=== PATIENT | female | born 1975 | race Caucasian/White ===

== ENCOUNTER 2016-08-05 21:08 | Emergency (ER) ==
[2016-08-05 21:19] VITALS: BP 120/86; TEMP 99.6; BMI 30.4
[2016-08-05] MEDS ORDERED: PHENERGAN 25 MG/ML VIAL IM STA (21:24)
[2016-08-05] MEDS ORDERED: NORFLEX IM STA (21:24)
[2016-08-05] MEDS ORDERED: DILAUDID 2 MG/ML SYRINGE IM STA (21:24)
--- NOTE | 2016-08-05 21:27 | ED.PDOC ---
[id number] 4d josephine got a migraine jefferson--just like my other ones--i see austen wesley at [facility] Time Seen by Physician: 21:15 Mode of Arrival: Walk-In Information Source: Patient Exam Limitations: No limitations Primary Care Provider: DOMINGO CLEARY Nursing and Triage Documentation Reviewed and Agree: Yes Neurological Complaint Exam - Headache Complaint/Exam Onset: Gradual Duration: several hours Symptoms Are: Still present Timing: Constant Episodes Lasting: Hours Worst Headache Ever: No Initial Severity: Mild Current Severity: Moderate Location: Diffuse Character: Reports: Dull, Throbbing, Pressure, Typical headache, Migraine Aggravating: Reports: Bright lights Alleviating: Reports: None Associated Signs and Symptoms: Reports: Nausea, Neck pain. Denies: Dizziness, Seizure, Vomiting, Sinus pressure, Fever, Neck stiffness, Decreased LOC, Visual changes Related History: Reports: Similar episode. Denies: Recent trauma, Remote trauma Related Surgical History: Reports: None SAH Risk Factors: Reports: None Meningitis Risk Factors: Reports: None SDH Risk Factors: Reports: None Temporal Arteritis Risk Factors: Reports: Female, Normal Head CT Within Last 12 Months: Yes Fundoscopic Exam: Present: Normal Findings Papilledema Present: No Temporal Artery Tenderness: Present: None Sinus Tenderness: Present: None TMJ Tenderness: Present: None Glascow Coma Scale (see protocol): 15 Meningeal Signs Positive: No Pain on Passive Flexion-Positive Kernig's: No ROM Limited In: No Limitiations Focal Weakness: Present: None Focal Sensory Loss: Present: None Gait: Normal Nystagmus Present: No Gag Reflex Present: Yes [id number]: Normal Findings Romberg Test Positive: No Babinski Sign: Negative Right, Negative Left Heel to Toe Normal: Yes Differential Diagnoses: Migraine Review of Systems - Review Of Systems Constitutional: Reports: No symptoms Eyes: Reports: No symptoms Ears, Nose, Mouth, Throat: Reports: No symptoms Respiratory: Reports: No symptoms Cardiac: Reports: No symptoms GI: Reports: Nausea : Reports: No symptoms Musculoskeletal: Reports: Neck pain Skin: Reports: No symptoms Neurological: Reports: Headache Endocrine: Reports: No symptoms Hematologic/Lymphatic: Reports: No symptoms All Other Systems: Reviewed and Negative Past Medical History - Past Medical History Previously Healthy: Yes Endocrine: Reports: None Cardiovascular: Reports: None Respiratory: Reports: None Hematological: Reports: None Gastrointestinal: Reports: None Genitourinary: Reports: None Neuro/Psych: Reports: Migraine, Anxiety Musculoskeletal: Reports: None Cancer: Reports: None Last Menstrual Period: 2011 hyst - Surgical History General Surgical History: Reports: Hysterectomy - Family History Family History: Reports: Unknown - Social History Smoking Status: Current every day smoker, Heavy tobacco smoker Hx Substance Use: No Alcohol Screening: Occasionally Lives: With family - Immunizations Tetanus Shot up to Date: Yes Physical Exam - Physical Exam Appearance: Well-appearing, No pain distress, Well-nourished Pain Distress: Moderate Eyes: JEFFREY ENT: Ears normal, Nose normal, Oropharynx normal Neck: Supple Respiratory: Airway patent, Breath sounds clear, Breath sounds equal, Respirations nonlabored Cardiovascular: RRR GI/: Soft, Nontender, No masses, Bowel sounds normal, No Organomegaly Musculoskeletal: Limited ROM Skin: Warm, Dry, Normal color Neurological: Sensation intact, Motor intact, Reflexes intact, Cranial nerves intact, Alert, Oriented Psychiatric: Affect appropriate Re-Evaluation - Re-Evaluation Time of Re-Evaluation: 22:05 Status: Improved Vital Signs Stable: Yes Pain Level: 1 Appearance: NAD Lungs: Clear Skin: Warm and Dry Neuro: Alert and Oriented X3 CV: RRR Critical Care Note - Critical Care Note Total Time (mins): 0 Course - Course Orders, Labs, Meds: Orders Category Date Time Status Hydromorphone HCl/Pf [Dilaudid 2 mg/ml Syringe] MEDS 08/05/16 21:24 Discontinued 2 mg IM ONCE STA Orphenadrine Citrate [Norflex] MEDS 08/05/16 21:24 Discontinued 60 mg IM ONCE STA Promethazine HCl [Phenergan 25 mg/ml Vial] MEDS 08/05/16 21:24 Discontinued 25 mg IM ONCE STA Medications Discontinued Medications Generic Name Dose Route Start Last Admin Trade Name Freq PRN Reason Stop Dose Admin Hydromorphone HCl 2 mg 08/05/16 21:24 08/05/16 21:39 Dilaudid 2 Mg/Ml Syringe IM 08/05/16 21:25 2 mg ONCE STA Administration Orphenadrine Citrate 60 mg 08/05/16 21:24 08/05/16 21:38 Norflex IM 08/05/16 21:25 60 mg ONCE STA Administration Promethazine HCl 25 mg 08/05/16 21:24 08/05/16 21:40 Phenergan 25 Mg/Ml Vial IM 08/05/16 21:25 25 mg ONCE STA Administration Vital Signs: Temp Pulse Resp BP Pulse Ox 08/05/16 21:11 99.6 F 92 H 20 120/86 97 Departure - Departure Time of Disposition: 21:28 Disposition: HOME SELF-CARE Discharge Problem: Migraine Qualifiers: Migraine type: without aura Status migrainosus presence: without status migrainosus Intractability: not intractable Qualifier Code: (G43.009) Migraine without aura, not intractable, without status migrainosus Instructions: Migraine Headache (ED) Condition: Good Pt referred to PMD for follow-up: Yes Additional Instructions: f/u with neurology Allergies/Adverse Reactions: Allergies sulfacetamide sodium [From Zencia] Adverse Reaction (Verified 08/05/16 21:21) sulfur [From Zencia] Adverse Reaction (Verified 08/05/16 21:21) Home Medications: Ambulatory Orders Alprazolam [Xanax] 1 mg PO BID 04/23/14 Naproxen [Naprosyn] 500 mg PO DAILY PRN 04/23/14 Lamotrigine [Lamictal Xr] 50 mg PO BEDTIME 02/17/16 Ranitidine HCl [Zantac] 150 mg PO BIDAC 02/17/16 Venlafaxine HCl [Effexor Xr] 150 mg PO DAILY 02/17/16 Disposition Discussed With: Patient, Family
== END 2016-08-05 22:00 | disposition home or self-care (01) ==
LOC: ED 21:08
DX: G43.009 Migraine without aura, not intractable, without status migrainosus (principal); F17.210 Nicotine dependence, cigarettes, uncomplicated
CPT/HCPCS: 96372; 99283

== ENCOUNTER 2016-09-14 14:47 | Emergency (ER) ==
[2016-09-14 14:51] VITALS: BP 112/79; TEMP 97.5; BMI 29.5
--- NOTE | 2016-09-14 15:54 | ED.PDOC ---
General ED Provider: Dr. ALLIE FARRELL JR Chief Complaint: Respiratory Complaint Stated Complaint: complins of cough, had productive yellow phlegm 2 days ago. alston when breathes and throat is raw[ End ]1 week 97.5 89 18 97% 112/79 4/10 I feel terrible, recent right sided pneumonia Time Seen by Physician: 15:52 Mode of Arrival: Walk-In Information Source: Patient Exam Limitations: No limitations Primary Care Provider: DOMINGO CLEARY Nursing and Triage Documentation Reviewed and Agree: No Review of Systems - Review Of Systems Constitutional: Reports: Chills, Malaise (I FEEL TERRIBLE), Weakness Eyes: Reports: No symptoms Ears, Nose, Mouth, Throat: Reports: Throat pain Respiratory: Reports: Cough (PRODUCTIVE YELLOW SPUTUM- NOW RESOLVED) Cardiac: Reports: No symptoms GI: Reports: No symptoms : Reports: No symptoms Musculoskeletal: Reports: No symptoms Skin: Reports: No symptoms Neurological: Reports: No symptoms Endocrine: Reports: No symptoms Hematologic/Lymphatic: Reports: No symptoms All Other Systems: Other Past Medical History - Past Medical History Previously Healthy: Yes Endocrine: Reports: None Cardiovascular: Reports: None Respiratory: Reports: None Hematological: Reports: None Gastrointestinal: Reports: None Genitourinary: Reports: None Neuro/Psych: Reports: Migraine, Seizure, Anxiety Musculoskeletal: Reports: None Cancer: Reports: None Last Menstrual Period: none - Surgical History General Surgical History: Reports: Hysterectomy (HYSTERECTOMY 2011), Orthopedic (KNEE SURGERY), Other (SALIVA STONES, SINUS SURGERY, BLADDER SURGERY) - Family History Family History: Reports: Unknown - Social History Smoking Status: Current every day smoker, Heavy tobacco smoker Hx Substance Use: No Alcohol Screening: Occasionally Physical Exam - Physical Exam Appearance: Well-appearing, Thin Pain Distress: Mild Eyes: JEFFREY, EOMI, Conjunctiva clear ENT: Ears normal, Nose normal, Oropharynx normal Neck: Supple Respiratory: Airway patent, Breath sounds clear, Breath sounds equal, Respirations nonlabored, Rhonchi (RIGHT SIDE) Cardiovascular: RRR, Pulses normal, No rub, No murmur GI/: Soft, Nontender, No masses, Bowel sounds normal, No Organomegaly Musculoskeletal: Normal strength, ROM intact, No edema, No calf tenderness Skin: Warm, Dry, Normal color Neurological: Sensation intact, Motor intact, Reflexes intact, Cranial nerves intact, Alert, Oriented Psychiatric: Affect appropriate, Mood appropriate Critical Care Note - Critical Care Note Total Time (mins): 0 Course - Course Orders, Labs, Meds: Lab Review 09/14/16 16:00 Influenza A (Rapid) Negative Influenza B (Rapid) Negative Orders Category Date Time Status MOLECULAR GROUP A STREP Stat LAB 09/14/16 16:00 Results RAPID FLU A/B Stat LAB 09/14/16 16:00 Completed STREP SCREEN Stat LAB 09/14/16 16:00 Results CHEST, 2 VIEWS PA & LAT Stat RADS 09/14/16 15:53 Completed Vital Signs: Temp Pulse Resp BP Pulse Ox 09/14/16 14:47 97.5 F L 89 18 112/79 97 Departure - Departure Time of Disposition: 17:02 Disposition: HOME SELF-CARE Discharge Problem: Bronchitis Instructions: Acute Bronchitis (ED), How to Stop Smoking (ED) Condition: Fair Pt referred to PMD for follow-up: Yes Additional Instructions: RECOMMEND STOP SMOKING COUGH MEDICATIONS SUCH ROBITUSSIN DM OR ROBITUSSIN AC OR SIMILAR NO FLU NO STREP RECHECK pmd ONE WEEK SOONER IF WORSE OR IF FEVER OVER 101.0 Prescriptions: Guaifenesin/Codeine Phosphate [Robitussin AC Syrup] 10 ml PO Q6H PRN #240 ml PRN Reason: Cough Ibuprofen [Motrin] 600 mg PO QID PRN #30 tablet PRN Reason: PAIN Allergies/Adverse Reactions: Allergies sulfacetamide sodium [From Zencia] Adverse Reaction (Verified 09/14/16 14:51) sulfur [From Zencia] Adverse Reaction (Verified 09/14/16 14:51) Home Medications: Ambulatory Orders Alprazolam [Xanax] 1 mg PO BID 04/23/14 Ranitidine HCl [Zantac] 150 mg PO BIDAC 02/17/16 Guaifenesin/Codeine Phosphate [Robitussin AC Syrup] 10 ml PO Q6H PRN #240 ml 07/02 Ibuprofen [Motrin] 600 mg PO QID PRN #30 tablet 09/14/16
[2016-09-14 16:20] LABS: FLU INTERNAL QC INTERNAL QC VALID; RAPID FLU A NEGATIVE (NEGATIVE); RAPID FLU B NEGATIVE (NEGATIVE)
--- NOTE | 2016-09-14 16:44 | DI ---
EXAM: Two views of the chest. History: Cough. Comparison: Chest radiograph 02/17/2016 Findings: Heart size is normal. No focal consolidation. No appreciable pleural fluid and no pneum othorax. No acute osseous abnormalities. Impression: No acute cardiopulmonary process.
== END 2016-09-14 17:11 | disposition home or self-care (01) ==
LOC: ED 14:47
DX: J20.9 Acute bronchitis, unspecified (principal); F17.210 Nicotine dependence, cigarettes, uncomplicated
CPT/HCPCS: 87651; 87804; 87880; 99283

== ENCOUNTER 2017-02-07 09:39 | Outpatient (CLI) ==
[2017-02-07 10:15] LABS: BASOPHILS % (AUTO) 0.6 % (0.0-3.0); EOSINOPHILS # (AUTO) 0.1 K/ul (0.0-0.7); EOSINOPHILS % (AUTO) 1.6 % (0.0-7.0); HEMATOCRIT 40.1 % (37.0-47.0); IMMATURE GRANULOCYTE % (AUTO) 0.1 % (0.0-5.0); LYMPHOCYTES # (AUTO) 2.1 K/uL (0.60-3.4); LYMPHOCYTES % (AUTO) 30.3 (10.0-50.0); MEAN CORPUSCULAR HGB CONC 34.9 (31.8-35.4); MEAN CORPUSCULAR VOLUME 91.6 fl (81.0-99.0); MONOCYTES # (AUTO) 0.5 K/uL (0.4-2.0); MONOCYTES % (AUTO) 6.9 (0-10); NEUTROPHILS # (AUTO) 4.1 K/ul (2.0-6.9); NEUTROPHILS % (AUTO) 60.5; PLATELET COUNT 195 10^3/uL (140-440); RED BLOOD COUNT 4.38 10^6/ul (4.20-5.40); WHITE BLOOD COUNT 6.83 K/ul (4.6-10.2)
[2017-02-07 11:09] LABS: ALBUMIN 3.7 g/dL (3.4-5.0); ALBUMIN/GLOBULIN RATIO 1.37; BILIRUBIN,TOTAL 0.39 mg/dL (0.00-1.20); BUN/CREATININE RATIO 14.28; CALCIUM 9.2 mg/dL (8.2-10.2); CHOL/HDL RATIO 5.5 (4.5-5.5); CREATININE 0.7 mg/dL (0.60-1.30); TOTAL PROTEIN 6.4 g/dL (6.4-8.2)
== END 2017-02-07 09:40 | disposition home or self-care (01) ==
LOC: LAB 09:39
PROVIDERS: ATTEND Physician Assistant
DX: F41.9 Anxiety disorder, unspecified (principal); M79.7 Fibromyalgia
CPT/HCPCS: 36415; 80053; 80061; 84443; 85025

== ENCOUNTER 2017-02-08 13:12 | Outpatient (CLI) | END 2017-02-08 13:13 | disposition home or self-care (01) | LOC: LAB 13:12 | PROVIDERS: ATTEND Physician Assistant | DX: M25.50 Pain in unspecified joint (principal) | CPT/HCPCS: 36415; 86617; 86757 ==

== ENCOUNTER 2017-07-13 23:02 | Emergency (ER) ==
[2017-07-13 23:21] VITALS: BP 124/82; TEMP 99.1; BMI 28.1
[2017-07-13] MEDS ORDERED: SODIUM CHLORIDE 1,000 ML IV STA (23:24)
[2017-07-13] MEDS ORDERED: MORPHINE 2 MG/ML SYRINGE IVP STA (23:25)
[2017-07-13] MEDS ORDERED: ZOFRAN 4 MG/2 ML IVP STA (23:25)
--- NOTE | 2017-07-14 01:09 | CT ---
Exam: CT of the abdomen and pelvis with contrast History: Abdominal pain Technique: [address] of the abdomen and pelvis following intravenous contrast FINDINGS: The lung bases are clear. Sub centimeter liver cysts. Liver appears normal otherwise. The adrenals, pancreas and spleen are unremarkable. The stomach and hiatus are unremarkable.The gallblad anju appears normal. Kidneys and proximal collecting system are unremarkable. The appendix is normal. Bowel loops demonstrate normal caliber. No inflamatory change seen in the mesentery or retroperitoneu m. Vascular structures appear normal. Small (2.2 cm) fatty ventral abdominal hernia without complicat ion. Prior hysterectomy. Normal urinary bladder appears normal pelvic bowel loops. No pelvic fat inflamm ation. No acute findings of the skeleton. Impression: 1. No inflammatory process, bowel or urinary obstruction is seen. 2. Small fatty ventral midline hernia without complication.
[2017-07-14] MEDS ORDERED: MORPHINE 2 MG/ML SYRINGE IVP STA (01:11)
--- NOTE | 2017-07-14 01:14 | CT ---
EXAM: CT pulmonary angiogram. HISTORY: Dyspnea. Evaluate for pulmonary embolism. PROCEDURE: After the intravenous injection of contrast a CT pulmonary angiogram was performed with c ontiguous axial CT images and multiplanar and 3-D reformats. FINDINGS: There is normal enhancement of the pulmonary arteries with no evidence of pulmonary embolis m. The heart is within normal limits in size. The thoracic aorta is within normal limits in diamete r. There is minimal bibasilar dependent atelectasis. There are bilateral ground-glass opacities. The bones and soft tissues are unremarkable. Impression: No evidence of pulmonary embolism. Bilateral ground-glass opacities which is a nonspecific finding. The differential diagnosis includes infection and edema. Minimal bibasilar dependent atelectasis.
--- NOTE | 2017-07-14 02:04 | ED.PDOC ---
General ED Provider: Dr. AVERY TONEY-ER Chief Complaint: Abdominal Pain Stated Complaint: im hurting Time Seen by Physician: 23:10 Mode of Arrival: Walk-In Information Source: Patient Exam Limitations: No limitations Primary Care Provider: DOMINGO CLEARY Nursing and Triage Documentation Reviewed and Agree: Yes Reviewed sepsis parameters & appropriate labs ordered?: Yes System Inflammatory Response Syndrome: Not Applicable Sepsis Protocol: For patient's 13 years and over: Temp is 96.8 and below OR 101 and greater Pulse >90 BPM Resp >20/minute Acutely Altered Mental Status Are patient's symptoms suggestive of a new infection, such as: -Pneumonia -Skin, Soft Tissue -Endocarditis -UTI -Bone, Joint Infection -Implantable Device -Acute Abdominal Infection -Wound Infection -Meningitis -Blood Stream Catheter Infection -Unknown GI Complaint Exam - Abdominal Pain Complaint/Exam Onset: Gradual Duration: several days Symptoms Are: Still present Timing: Intermittent Initial Severity: Mild Current Severity: Mild Location of Pain: Epigastric Character: Reports: Dull, Aching Aggravating: Reports: Movement Alleviating: Reports: Spontaneous resolution Associated Signs and Symptoms: Reports: Nausea. Denies: Diaphoresis, Fever, Cough, Chest pain, Dizziness, Back pain, Constipation, Blood in stool, Dysuria, Urinary frequency, Decreased urine output, Decreased appetite, Vaginal bleeding , Vaginal discharge Differential Diagnoses: Bowel Obstruction, Constipation, Pancreatitis Quality Indicator For Non-Traumatic Chest Pain/Syncope: EKG Performed Review of Systems - Review Of Systems Constitutional: Reports: No symptoms Eyes: Reports: No symptoms Ears, Nose, Mouth, Throat: Reports: No symptoms Respiratory: Reports: No symptoms Cardiac: Reports: No symptoms GI: Reports: Abdominal pain, Nausea : Reports: No symptoms Musculoskeletal: Reports: No symptoms Skin: Reports: No symptoms Neurological: Reports: No symptoms Endocrine: Reports: No symptoms Hematologic/Lymphatic: Reports: No symptoms All Other Systems: Reviewed and Negative Past Medical History - Past Medical History Previously Healthy: Yes Endocrine: Reports: None Cardiovascular: Reports: None Respiratory: Reports: None Hematological: Reports: None Gastrointestinal: Reports: None Genitourinary: Reports: None Neuro/Psych: Reports: Migraine, Seizure, Anxiety Musculoskeletal: Reports: None Cancer: Reports: None Last Menstrual Period: 2011 Other Pertinent Past Medical History: , BLADDER SURG.[ End ]BEING TESTED FOR MS sz anx migr - Surgical History General Surgical History: Reports: Hysterectomy (HYSTERECTOMY 2011), Orthopedic (KNEE SURGERY), Other (SALIVA STONES, SINUS SURGERY, BLADDER SURGERY) - Family History Family History: Reports: Unknown - Social History Smoking Status: Current every day smoker, Heavy tobacco smoker Hx Substance Use: No Alcohol Screening: Occasionally - Immunizations Tetanus Shot up to Date: Yes Physical Exam - Physical Exam Appearance: Well-appearing, No pain distress, Well-nourished Eyes: JEFFREY, EOMI, Conjunctiva clear ENT: Ears normal, Nose normal, Oropharynx normal Neck: Supple Respiratory: Airway patent, Breath sounds clear, Breath sounds equal, Respirations nonlabored Cardiovascular: RRR, Pulses normal, No rub, No murmur GI/: Soft, No masses, Bowel sounds normal, No Organomegaly, Tender Musculoskeletal: Normal strength Skin: Warm Neurological: Sensation intact, Motor intact, Reflexes intact, Cranial nerves intact, Alert, Oriented Psychiatric: Affect appropriate, Mood appropriate, Anxious Interpretation - Radiology Interpretation Radiology Interpretation By: Radiologist Radiology Results: Positive Exam Interpreted: CT Scan - EKG Interpretation Time of EKG #1: 02:03 Rate: Normal Rhythm: Sinus Ectopy: None [place]: NL ST Segment: Normal Interpretation: nsr Re-Evaluation - Re-Evaluation Time of Re-Evaluation: 02:04 Status: Improved Vital Signs Stable: Yes Pain Level: 1 Appearance: NAD Lungs: Clear Skin: Warm and Dry Neuro: Alert and Oriented X3 CV: RRR Critical Care Note - Critical Care Note Total Time (mins): 0 Course - Course Hematology/Chemistry: 07/13/17 23:33 07/13/17 23:33 Orders, Labs, Meds: Lab Review 07/13/17 07/13/17 07/14/17 23:33 23:33 00:40 WBC 8.43 RBC 4.16 L Hgb 13.5 Hct 38.0 MCV 91.3 MCH 32.5 H MCHC 35.5 H RDW Coeff of Vicki 12.5 Plt Count 251 Immature Gran % (Auto) 0.1 Neut % (Auto) 46.4 Lymph % (Auto) 46.0 Josephine % (Auto) 5.6 Eos % (Auto) 1.4 Baso % (Auto) 0.5 Immature Gran # (Auto) 0.0 Neut # (Auto) 3.9 Lymph # (Auto) 3.9 H Josephine # (Auto) 0.5 Eos # (Auto) 0.1 Baso # (Auto) 0.0 ESR 5 Sodium 141 Potassium 3.7 Chloride 109 H Carbon Dioxide 21 Anion Gap 14.7 BUN 8 Creatinine 0.70 Estimated GFR (MDRD) 93.00 BUN/Creatinine Ratio 11.42 Glucose 95 Calcium 9.0 Total Bilirubin < 0.3 AST 12 L ALT 10 L Alkaline Phosphatase 93 Total Protein 7.1 Albumin 3.9 Globulin 3.2 Albumin/Globulin Ratio 1.22 Amylase 111 Lipase 65 Urine Color Urine Clarity Urine pH Ur Specific Ambia Urine Protein Urine Glucose (UA) Urine Ketones Urine Blood Urine Nitrite Urine Bilirubin Urine Urobilinogen Ur Leukocyte Esterase Urine Microscopic RBC Urine Microscopic WBC Ur Squamous Epith Cells Urine Mucus Urine Opiates Screen Ur Oxycodone Screen Urine Methadone Screen Ur Propoxyphene Screen Ur Barbiturates Screen U Tricyclic Antidepress Ur Phencyclidine Scrn Ur Amphetamine Screen U Methamphetamines Scrn U Benzodiazepines Scrn Urine Cocaine Screen U Cannabinoids Screen Influ A Molecular Assay Negative by naat Influ B Molecular Assay Negative by naat 07/14/17 07/14/17 01:15 01:15 WBC RBC Hgb Hct MCV MCH MCHC RDW Coeff of Vicki Plt Count Immature Gran % (Auto) Neut % (Auto) Lymph % (Auto) Josephine % (Auto) Eos % (Auto) Baso % (Auto) Immature Gran # (Auto) Neut # (Auto) Lymph # (Auto) Josephine # (Auto) Eos # (Auto) Baso # (Auto) ESR Sodium Potassium Chloride Carbon Dioxide Anion Gap BUN Creatinine Estimated GFR (MDRD) BUN/Creatinine Ratio Glucose Calcium Total Bilirubin AST ALT Alkaline Phosphatase Total Protein Albumin Globulin Albumin/Globulin Ratio Amylase Lipase Urine Color Yellow Urine Clarity Clear Urine pH 5.5 Ur Specific Ambia <=1.005 Urine Protein Negative Urine Glucose (UA) Negative Urine Ketones Negative Urine Blood Trace-intact Urine Nitrite Negative Urine Bilirubin Negative Urine Urobilinogen 0.2 Ur Leukocyte Esterase Negative Urine Microscopic RBC 2-5 Urine Microscopic WBC 2-5 Ur Squamous Epith Cells 0-2 Urine Mucus 1+ Urine Opiates Screen Positive Ur Oxycodone Screen Negative Urine Methadone Screen Negative Ur Propoxyphene Screen Negative Ur Barbiturates Screen Negative U Tricyclic Antidepress Negative Ur Phencyclidine Scrn Negative Ur Amphetamine Screen Negative U Methamphetamines Scrn Negative U Benzodiazepines Scrn Negative Urine Cocaine Screen Negative U Cannabinoids Screen Negative Influ A Molecular Assay Influ B Molecular Assay Orders Category Date Time Status EKG-(ED ONLY) Stat CARDIO 07/14/17 00:30 Completed NPO REMINDER: IMAGING ONCE CARE 07/13/17 23:24 Completed ED IV/MEDIPORT/POWERPORT .ONCE EMERGENCY 07/13/17 23:24 Active AMYLASE Stat LAB 07/13/17 23:33 Completed CBC W/ AUTO DIFF Stat LAB 07/13/17 23:33 Completed COMPREHENSIVE METABOLIC PANEL Stat LAB 07/13/17 23:33 Completed ESR Stat LAB 07/13/17 23:33 Completed FLU A/B MOLECULAR Stat LAB 07/14/17 00:40 Completed LIPASE Stat LAB 07/13/17 23:33 Completed MOLECULAR GROUP A STREP Stat LAB 07/14/17 00:40 Completed URINALYSIS C & S IF INDICATED Stat LAB 07/14/17 01:15 Completed URINE DRUG SCREEN (RAPID FOR ED) [DRUG SCREEN, URINE, LAB 07/14/17 01:15 Completed RAPID] Stat 0.9 % Sodium Chloride [Saline Flush] MEDS 07/13/17 23:24 Ordered 1 syr IVF PRN PRN Morphine Sulfate [Morphine 2 mg/ml Syringe] MEDS 07/13/17 23:25 Discontinued 2 mg IVP ONCE STA Morphine Sulfate [Morphine 2 mg/ml Syringe] MEDS 07/14/17 01:11 Discontinued 2 mg IVP ONCE STA Ondansetron HCl/Pf [Zofran 4 mg/2 ml] MEDS 07/13/17 23:25 Discontinued 4 mg IVP ONCE STA Sodium Chloride 0.9% [Sodium Chloride] 1,000 ml MEDS 07/13/17 23:[address] ABDOMEN/PELVIS W CONTRAST Stat RADS 07/13/17 23:[address] CHEST PE PROTOCOL Stat RADS 07/13/17 23:24 Completed Medications Generic Name Dose Route Start Last Admin Trade Name Freq PRN Reason Stop Dose Admin Sodium Chloride 1,000 mls @ 250 mls/hr 07/13/17 23:24 07/14/17 00:19 Sodium Chloride IV 07/14/17 03:23 250 mls/hr BOLUS STA Administration Sodium Chloride 1 syr 07/13/17 23:24 Saline Flush IVF PRN PRN To flush IV Discontinued Medications Generic Name Dose Route Start Last Admin Trade Name Freq PRN Reason Stop Dose Admin Morphine Sulfate 2 mg 07/13/17 23:25 07/14/17 00:18 Morphine 2 Mg/Ml Syringe IVP 07/13/17 23:26 2 mg ONCE STA Administration Morphine Sulfate 2 mg 07/14/17 01:11 07/14/17 01:17 Morphine 2 Mg/Ml Syringe IVP 07/14/17 01:12 2 mg ONCE STA Administration Ondansetron HCl 4 mg 07/13/17 23:25 07/14/17 00:19 Zofran 4 Mg/2 Ml IVP 07/13/17 23:26 4 mg ONCE STA Administration Vital Signs: Temp Pulse Resp BP Pulse Ox 07/13/17 23:04 99.1 F 99 H 20 124/82 94 L Departure - Departure Time of Disposition: 02:04 Disposition: HOME SELF-CARE Discharge Problem: Ventral hernia without obstruction or gangrene Instructions: Ventral Hernia (ED) Condition: Good Pt referred to PMD for follow-up: Yes IPMP verified?: No Additional Instructions: f/u with pcp for surgery referral--augmentin 875mg bid x 7 days Allergies/Adverse Reactions: Allergies sulfacetamide sodium [From Zencia] Adverse Reaction (Verified 07/13/17 23:15) sulfur [From Zencia] Adverse Reaction (Verified 07/13/17 23:15) Home Medications: Ambulatory Orders Alprazolam [Xanax] 1 mg PO BID 04/23/14 Albuterol Sulfate [Proair Hfa] 2 puff IH Q6H PRN #1 puff 03/22/17 Duloxetine HCl [Cymbalta] 20 mg PO DAILY 03/22/17 Rizatriptan Benzoate [Maxalt] 5 mg PO PRN PRN 03/22/17 Sumatriptan Succinate [Onzetra Xsail] 11 mg NS PRN PRN 03/22/17 Memantine HCl [Namenda] 10 mg PO BID 07/13/17 Disposition Discussed With: Patient, Family
== END 2017-07-14 02:14 | disposition home or self-care (01) ==
LOC: ED 23:02
DX: K43.9 Ventral hernia without obstruction or gangrene (principal); F17.210 Nicotine dependence, cigarettes, uncomplicated
CPT/HCPCS: 36415; 80053; 80306; 81001; 82150; 83690; 85025; 85651; 87502; 87651; 93005; 93010; 96361; 96374; 96375; 96376; 99283

== ENCOUNTER 2017-07-15 09:53 | Outpatient (CLI) ==
--- NOTE | 2017-07-15 11:06 | US ---
EXAM: Ultrasound abdomen limited. HISTORY: Left upper quadrant pain. Attention spleen. COMPARISON: CT 1 day prior. TECHNIQUE: Abdominal, real time with image documentation: limited (eg, single organ, quadrant, foll ow-up) FINDINGS: The spleen measures approximately 10.1 x 4.3 x 7.2 cm and appears homogeneous. No left up per quadrant fluid collections are seen. IMPRESSION: No sonographic abnormality of the spleen.
== END 2017-07-15 09:54 | disposition home or self-care (01) ==
LOC: RAD 09:53
PROVIDERS: ATTEND Physician Assistant
DX: R05 Cough (principal); R07.89 Other chest pain; R10.12 Left upper quadrant pain
CPT/HCPCS: 36415; 85025

== ENCOUNTER 2017-08-15 22:58 | Emergency (ER) ==
[2017-08-15 22:58] VITALS: BMI 27.8
[2017-08-15 23:10] VITALS: BP 122/85; TEMP 97.9
--- NOTE | 2017-08-15 23:23 | ED.PDOC ---
General ED Provider: Dr. AVERY TONEY-ER Chief Complaint: Extremity Swelling/Pain Stated Complaint: my legs are swollen --mamadou right leg Time Seen by Physician: 23:20 Mode of Arrival: Walk-In Information Source: Patient Exam Limitations: No limitations Primary Care Provider: DOMINGO CLEARY Nursing and Triage Documentation Reviewed and Agree: Yes Reviewed sepsis parameters & appropriate labs ordered?: Yes System Inflammatory Response Syndrome: Not Applicable Sepsis Protocol: For patient's 13 years and over: Temp is 96.8 and below OR 101 and greater Pulse >90 BPM Resp >20/minute Acutely Altered Mental Status Are patient's symptoms suggestive of a new infection, such as: -Pneumonia -Skin, Soft Tissue -Endocarditis -UTI -Bone, Joint Infection -Implantable Device -Acute Abdominal Infection -Wound Infection -Meningitis -Blood Stream Catheter Infection -Unknown Musculoskeletal Complaint Exam - Lower Extremity Complaint/Exam Location of Pain: Reports: Right, Leg Mechanism of Injury: Reports: No known trauma Onset/Duration: several hours Symptoms Are: Still present Onset of Pain: Reports: Immediate Initial Severity: Mild Current Severity: Mild Location: Reports: Discrete Character: Reports: Dull, Aching Aggravating: Reports: Movement, Weight bearing Able to Bear Weight: No Associated Signs and Symptoms: Reports: Swelling Septic Arthritis Risk Factors: Reports: None Related Surgical History: Reports: None Lower Extremity Findings: Present: Swelling, Tenderness, Limited range of motion Compartment Syndrome Risk Factors: Present: Pain Kari's Sign Present: Yes Differential Diagnoses: DVT, Phlebitis Review of Systems - Review Of Systems Constitutional: Reports: No symptoms Eyes: Reports: No symptoms Ears, Nose, Mouth, Throat: Reports: No symptoms Respiratory: Reports: No symptoms Cardiac: Reports: No symptoms GI: Reports: No symptoms, Other : Reports: No symptoms Musculoskeletal: Reports: No symptoms Skin: Reports: No symptoms Neurological: Reports: No symptoms Endocrine: Reports: No symptoms Hematologic/Lymphatic: Reports: No symptoms All Other Systems: Reviewed and Negative Past Medical History - Past Medical History Previously Healthy: Yes Endocrine: Reports: None Cardiovascular: Reports: None Respiratory: Reports: None Hematological: Reports: None Gastrointestinal: Reports: None Genitourinary: Reports: None Neuro/Psych: Reports: Migraine, Seizure, Anxiety Musculoskeletal: Reports: None Cancer: Reports: None Last Menstrual Period: PT HAS HAD A HYSTERECTOMY Other Pertinent Past Medical History: , BLADDER SURG.[ End ]BEING TESTED FOR MS sz anx migr - Surgical History General Surgical History: Reports: Hysterectomy (HYSTERECTOMY 2011), Orthopedic (KNEE SURGERY), Other (SALIVA STONES, SINUS SURGERY, BLADDER SURGERY) - Family History Family History: Reports: Unknown - Social History Smoking Status: Current every day smoker, Heavy tobacco smoker Hx Substance Use: No Alcohol Screening: Occasionally - Immunizations Tetanus Shot up to Date: Yes Physical Exam - Physical Exam Appearance: Well-appearing, No pain distress, Well-nourished Eyes: JEFFREY, EOMI, Conjunctiva clear ENT: Ears normal, Nose normal, Oropharynx normal Neck: Supple Respiratory: Airway patent, Breath sounds clear, Breath sounds equal, Respirations nonlabored Cardiovascular: RRR, Pulses normal, No rub, No murmur GI/: Soft, Nontender, No masses, Bowel sounds normal, No Organomegaly Musculoskeletal: Limited ROM Skin: Warm, Dry, Normal color Neurological: Sensation intact Psychiatric: Affect appropriate, Mood appropriate Critical Care Note - Critical Care Note Total Time (mins): 0 Course - Course Vital Signs: Temp Pulse Resp BP Pulse Ox 08/15/17 22:59 97.9 F 89 18 122/85 97 Departure - Departure Time of Disposition: 23:21 Disposition: AMA Discharge Problem: Edema of lower extremity Instructions: Leg Edema (ED) Condition: Good Pt referred to PMD for follow-up: Yes IPMP verified?: No Additional Instructions: return prn Allergies/Adverse Reactions: Allergies latex Adverse Reaction (Verified 08/15/17 23:09) sulfacetamide sodium [From Zencia] Adverse Reaction (Verified 07/13/17 23:15) sulfur [From Zencia] Adverse Reaction (Verified 07/13/17 23:15) Home Medications: Ambulatory Orders Alprazolam [Xanax] 1 mg PO BID PRN 04/23/14 Albuterol Sulfate [Proair Hfa] 2 puff IH Q6H PRN #1 puff 03/22/17 Duloxetine HCl [Cymbalta] 20 mg PO DAILY 03/22/17 Rizatriptan Benzoate [Maxalt] 5 mg PO PRN PRN 03/22/17 Sumatriptan Succinate [Onzetra Xsail] 11 mg NS PRN PRN 03/22/17 Memantine HCl [Namenda] 10 mg PO BID 07/13/17 Disposition Discussed With: Patient
== END 2017-08-15 23:21 | disposition left against medical advice (07) ==
LOC: ED 22:58
DX: R60.0 Localized edema (principal); M79.604 Pain in right leg; F17.210 Nicotine dependence, cigarettes, uncomplicated
CPT/HCPCS: 99284

== ENCOUNTER 2018-01-02 15:37 | Outpatient (CLI) ==
--- NOTE | 2018-01-02 16:24 | DI ---
EXAM: Two views of the chest. History: Bronchitis. Comparison: Chest radiograph 09/14/2016, chest CT 07/14/2017 Findings: Heart size is normal. There is central bronchial wall thickening. No consolidation. No pleural fluid and no pneumothorax. No acute osseous abnormalities. Impression: Bronchial wall thickening but no evidence for pneumonia.
== END 2018-01-02 15:38 | disposition home or self-care (01) ==
LOC: RAD 15:37
PROVIDERS: ATTEND Family Medicine
DX: J40 Bronchitis, not specified as acute or chronic (principal); F17.210 Nicotine dependence, cigarettes, uncomplicated

== ENCOUNTER 2018-01-31 17:04 | Outpatient (CLI) | END 2018-01-31 17:05 | disposition home or self-care (01) | LOC: LAB 17:04 | PROVIDERS: ATTEND Family Medicine | DX: J40 Bronchitis, not specified as acute or chronic (principal) | CPT/HCPCS: 36415; 80053; 85025 ==

== ENCOUNTER 2018-02-01 07:10 | Outpatient (CLI) ==
--- NOTE | 2018-02-01 09:20 | CT ---
EXAM: CTA of the chest. History: Bronchitis, chest pain. Comparison: Chest radiograph 01/02/2018, chest CT 07/14/2017 Technique: Multiplanar CT images through the thorax were obtained following administration of IV con trast. MIP images and 3-D reconstructions were also acquired. Findings: Heart size is normal. No pericardial effusion. Great vessels are unremarkable. No patho logically enlarged thoracic lymph nodes. No pulmonary arterial filling defects. Mild diffuse bronchi al wall thickening. No consolidation. No pleural fluid and no pneumothorax. There is some mosaic a ttenuation within the lungs which has improved compared to the prior study. Focus of subsegmental at electasis within the left lower lobe. No suspicious lung masses or lung nodules. Within the visualized upper abdomen, no acute findings. No acute osseous abnormalities. Impression: 1. No pulmonary embolism. 2. Mild diffuse bronchial wall thickening but no evidence for pneumonia. 3. Improved mosaic attenuation consistent with air trapping.
== END 2018-02-01 07:11 | disposition home or self-care (01) ==
LOC: RAD 07:10
PROVIDERS: ATTEND Family Medicine
DX: J40 Bronchitis, not specified as acute or chronic (principal); R91.1 Solitary pulmonary nodule

== ENCOUNTER 2018-04-04 10:36 | Outpatient (CLI) | END 2018-04-04 10:37 | disposition home or self-care (01) | LOC: LAB 10:36 | PROVIDERS: ATTEND Family Medicine | DX: M13.0 Polyarthritis, unspecified (principal); M79.7 Fibromyalgia; R23.1 Pallor | CPT/HCPCS: 36415; 85025; 85651; 86038; 86140 ==

== ENCOUNTER 2018-06-08 15:27 | Outpatient (CLI) | END 2018-06-08 15:28 | disposition home or self-care (01) | LOC: RHC-LAB 15:27 → FCC-LAB 15:28 | PROVIDERS: ATTEND Family Medicine | DX: J32.9 Chronic sinusitis, unspecified (principal) | CPT/HCPCS: 87502 ==

== ENCOUNTER 2018-06-14 10:08 | Outpatient (CLI) ==
--- NOTE | 2018-06-14 10:42 | DI ---
Exam: Two views of the chest. Comparison: 01/02/2018. Reason for exam: Bronchitis. FINDINGS: No pneumothorax, pleural effusion, or focal consolidation. The cardiac silhouette is not enlarged. The imaged osseous structures appear grossly unremarkable without acute fracture. Impression: No acute cardiopulmonary process.
== END 2018-06-14 10:09 | disposition home or self-care (01) ==
LOC: RAD 10:08
PROVIDERS: ATTEND Family Medicine
DX: J40 Bronchitis, not specified as acute or chronic (principal)